=== PATIENT | male | born 1985 | race American Indian/Alaskan Native ===

== ENCOUNTER 2019-08-23 17:35 | Emergency (ER) | payer OTHER ==
--- NOTE | 2019-08-23 18:18 | Emergency Department Report ---
Blank Doc - Documentation Documentation: 33-year-old male that presents with left sided chest pain with some SOB. This initial assessment/diagnostic orders/clinical plan/treatment(s) is/are subject to change based on patient's health status, clinical progression and re- assessment by fellow clinical providers in the ED. Further treatment and workup at subsequent clinical providers discretion. Patient/guardians urged not to elope from the ED as their condition may be serious if not clinically assessed and managed. Initial orders include: 1- Patient sent to ACC for further evaluation and treatment 2- CXR 3- EKG 4- labs
[2019-08-23 18:40] LABS: Basophils % (Auto) 0.3 % (0.0-1.8); Eosinophils # (Auto) 0.3 K/mm3 (0.0-0.4); Eosinophils % (Auto) 5.2 % (0.0-4.3); Hematocrit 42.4 % (35.5-45.6); Hemoglobin 14.5 gm/dl (11.8-15.2); Lymphocytes # (Auto) 2.8 K/mm3 (1.2-5.4); Lymphocytes % (Auto) 43.8 % (13.4-35.0); Mean Corpuscular HGB Conc 34 % (32-34); Mean Corpuscular Volume 88 fl (84-94); Monocytes # (Auto) 0.4 K/mm3 (0.0-0.8); Monocytes % (Auto) 6.4 % (0.0-7.3); Platelet Count 293 K/mm3 (140-440); Red Blood Count 4.84 M/mm3 (3.65-5.03); Red Cell Distribution Width 13.5 % (13.2-15.2)
[2019-08-23 19:04] LABS: BUN/Creatinine Ratio 11; Blood Urea Nitrogen 10 mg/dL (9-20); Calcium 9.6 mg/dL (8.4-10.2); Hemolysis Index 10
--- NOTE | 2019-08-23 19:29 | XRay Report ---
CHEST 2 VIEWS INDICATION / CLINICAL INFORMATION: cp. COMPARISON: None available. FINDINGS: SUPPORT DEVICES: None. HEART / MEDIASTINUM: No significant abnormality. LUNGS / PLEURA: No significant pulmonary or pleural abnormality. No pneumothorax. ADDITIONAL FINDINGS: No significant additional findings. IMPRESSION: 1. No acute findings. Signer Name: Dominic Cortez MD Signed: 08/23/2019 7:25 PM Workstation Name: [id number]
[2019-08-23 22:05] VITALS: BP 126/77
[2019-08-23] MEDS ORDERED: KETOROLAC 60 MG/2 ML INJ IM ONE (22:42)
--- NOTE | 2019-08-23 22:49 | Emergency Department Report ---
ED Chest Pain HPI - General Chief Complaint: Chest Pain Stated Complaint: CHEST PAIN Time Seen by Provider: 08/23/19 18:16 Source: patient Mode of arrival: Ambulatory Limitations: No Limitations - History of Present Illness Initial Comments: 33-year-old male with a past medical history tobacco use presents with the chest has 4 days. Pain is sharp in any one specific area his left chest and is reproducible with palpation and movement and activation of chest wall muscles. Patient denies shortness of breath, nausea, vomiting, or diaphoresis. Denies recent travel, calf tenderness, leg edema, hormonal therapy, history of PE/DVT. Patient did see some blood with blowing his nose followed by coughing of mild bloody sputum with mild epistaxis episode. 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 - Related Data Previous Rx's Medication Instructions Recorded Last Taken Type Acetaminophen/Codeine [Tylenol #3] 1 tab PO Q6H PRN #15 tab 12/12/15 Unknown Rx Ibuprofen [Motrin 800 MG tab] 800 mg PO Q8HR PRN #20 tablet 12/12/15 Unknown Rx Naproxen [Naprosyn] 500 mg PO BID PRN #20 tablet 08/23/19 Unknown Rx Allergies Allergy/AdvReac Type Severity Reaction Status Date / Time shrimp Allergy Swelling Verified 05/30/15 18:34 Heart Score - HEART Score History: Slightly suspicious EKG: Normal Age: < 45 Risk factors: 1-2 risk factors Troponin: < normal limit HEART Score: 1 ED Review of Systems ROS: Stated complaint: CHEST PAIN Other details as noted in HPI Comment: All other systems reviewed and negative ED Past Medical Hx - Past Medical History Previous Medical History?: No - Surgical History Past Surgical History?: No - Social History Smoking Status: Never Smoker Substance Use Type: None - Medications Home Medications: Home Medications Medication Instructions Recorded Confirmed Last Taken Type Acetaminophen/Codeine [Tylenol #3] 1 tab PO Q6H PRN #15 tab 12/12/15 Unknown Rx Ibuprofen [Motrin 800 MG tab] 800 mg PO Q8HR PRN #20 tablet 12/12/15 Unknown Rx Naproxen [Naprosyn] 500 mg PO BID PRN #20 tablet 08/23/19 Unknown Rx ED Physical Exam - General Limitations: No Limitations - Other Other exam information: General: No limitations, patient is alert in no acute distress Head exam: Atraumatic, normocephalic Eyes exam: Normal appearance ENT: Moist mucous membrane Neck exam: Normal inspection, full range of motion Respiratory exam: Clear to auscultation bilateral, no wheezes, rales, crackles Cardiovascular: Normal rate and rhythm. Reproducible left chest wall tenderness one specific area of chest with palpation. Abdomen: Soft, nondistended, and nontender, with normal bowel sounds, no rebound, or guarding, Extremity: No deformity Back: Normal Inspection, no calf tenderness or leg edema Neurologic: Alert, oriented x3, speech clear, no gross motor or sensory deficit Psychiatric: Normal mood, affect Skin: No rash ED Course Vital Signs 08/23/19 08/23/19 18:13 22:04 Temperature 98.8 F 98.5 F Pulse Rate 88 78 Respiratory 20 19 Rate Blood Pressure 126/78 Blood Pressure 126/77 [Right] O2 Sat by Pulse 98 98 Oximetry ELOISE score - Eloise Score Age > 65: (0) No Aspirin use within the Past 7 Days: (0) No 3 or more CAD Risk Factors: (0) No 2 or more Angina events in past 24 hrs: (0) No Known CAD with more than 50% Stenosis: (0) No Elevated Cardiac Markers: (0) No ST Deviation Greater than 0.5mm: (0) No ELOISE Score: 0 ED Medical Decision Making - Lab Data Result diagrams: 08/23/19 18:23 08/23/19 18:23 Lab Results 08/23/19 08/23/19 Range/Units 18:23 18:23 WBC 6.3 (4.5-11.0) K/mm3 RBC 4.84 (3.65-5.03) M/mm3 Hgb 14.5 (11.8-15.2) gm/dl Hct 42.4 (35.5-45.6) % MCV 88 (84-94) fl MCH 30 (28-32) pg MCHC 34 (32-34) % RDW 13.5 (13.2-15.2) % Plt Count 293 (140-440) K/mm3 Lymph % (Auto) 43.8 H (13.4-35.0) % [place] % (Auto) 6.4 (0.0-7.3) % Eos % (Auto) 5.2 H (0.0-4.3) % Baso % (Auto) 0.3 (0.0-1.8) % Lymph # 2.8 (1.2-5.4) K/mm3 [place] # 0.4 (0.0-0.8) K/mm3 Eos # 0.3 (0.0-0.4) K/mm3 Baso # 0.0 (0.0-0.1) K/mm3 Seg Neutrophils % 44.3 (40.0-70.0) % Seg Neutrophils # 2.8 (1.8-7.7) K/mm3 Sodium 139 (137-145) mmol/L Potassium 4.4 (3.6-5.0) mmol/L Chloride 100.8 (98-107) mmol/L Carbon Dioxide 25 (22-30) mmol/L Anion Gap 18 mmol/L BUN 10 (9-20) mg/dL Creatinine 0.9 (0.8-1.5) mg/dL Estimated GFR > 60 ml/min BUN/Creatinine Ratio 11 % Glucose 97 (75-100) mg/dL Calcium 9.6 (8.4-10.2) mg/dL Troponin T < 0.010 (0.00-0.029) ng/mL - EKG Data -: EKG Interpreted by Co EKG shows normal: sinus rhythm, ST-T waves (no stemi) Rate: normal - Radiology Data Radiology results: report reviewed CHEST 2 VIEWS INDICATION / CLINICAL INFORMATION: cp. COMPARISON: None available. FINDINGS: SUPPORT DEVICES: None. HEART / MEDIASTINUM: No significant abnormality. LUNGS / PLEURA: No significant pulmonary or pleural abnormality. No pneumothorax. ADDITIONAL FINDINGS: No significant additional findings. IMPRESSION: 1. No acute findings. - Medical Decision Making pt with reproducible chest wall pain and performs heavy lifting at work. Pain is Reproducible palpation and activation of the chest wall muscle. EKG without signs of ischemia. Troponin negative. and Low heart score and low risk for PE/DVT. Plan to d/c pt home with pain meds toradol given in ed - Differential Diagnosis msk pain, mi, pe,atypical cp Critical Care Time: No Critical care attestation.: If time is entered above; I have spent that time in minutes in the direct care of this critically ill patient, excluding procedure time. ED Disposition Clinical Impression: Chest wall muscle strain Disposition: TO HOME OR SELFCARE Is pt being admited?: No Does the pt Need Aspirin: No Condition: Stable Instructions: Thoracic Pain (ED) Additional Instructions: Take the medication as prescribed. Follow-up with your doctor or with the doctor/clinic provided. Return if symptoms worsen as indicated by your discharge instructions. Prescriptions: Naproxen [Naprosyn] 500 mg PO BID PRN #20 tablet PRN Reason: Pain , Severe (7-10) Referrals: PRIMARY CAREMD [Primary Care Provider] - 3-5 Days QUINTEN LOPEZ MD [Staff Physician] - 3-5 Days Time of Disposition: 22:53
== END 2019-08-24 00:05 | disposition home or self-care (01) ==
LOC: ED 17:35
DX: S29.011A Strain of muscle and tendon of front wall of thorax, initial encounter (principal); Z79.899 Other long term (current) drug therapy; Z91.013 Allergy to seafood; X58.XXXA Exposure to other specified factors, initial encounter; Y93.89 Activity, other specified; Y92.89 Other specified places as the place of occurrence of the external cause; Y99.8 Other external cause status
CPT/HCPCS: 36415; 71046; 80048; 84484; 85025; 93005; 93010; 96372; 99284; J1885

== ENCOUNTER 2019-09-30 19:24 | Emergency (ER) | payer OTHER ==
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
[2019-09-30 22:09] VITALS: BP 134/86
--- NOTE | 2019-09-30 23:31 | XRay Report ---
Bilateral RIBS with PA chest, 4 views INDICATION: Bilateral chest pain FINDINGS: The ribs are intact with no fracture or bone lesion. Accompanying chest x-ray is unremarkab le. No abnormality seen. Signer Name: Valdez Rendon MD Signed: 09/30/2019 11:27 PM Workstation Name: [id number]
[2019-10-01] MEDS ORDERED: traMADol 50 MG TAB PO ONE (02:03)
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
== END 2019-10-01 02:15 | disposition home or self-care (01) ==
LOC: ED 19:24
DX: S20.211A Contusion of right front wall of thorax, initial encounter (principal); Z91.013 Allergy to seafood; Z79.899 Other long term (current) drug therapy; V49.49XA Driver injured in collision with other motor vehicles in traffic accident, initial encounter; Y93.89 Activity, other specified; Y92.410 Unspecified street and highway as the place of occurrence of the external cause; Y99.8 Other external cause status
CPT/HCPCS: 71111

== ENCOUNTER 2020-10-25 17:34 | Emergency (ER) | payer OTHER ==
[2020-10-25 19:23] VITALS: BP 133/97
--- NOTE | 2020-10-25 20:13 | Emergency Department Report ---
ED ENT HPI - General Chief complaint: Earache Stated complaint: POSSIBLE EAR INFECTION Time Seen by Provider: 10/25/20 20:02 Source: patient Mode of arrival: Ambulatory Limitations: No Limitations - History of Present Illness Initial comments: Patient is a 35-year-old male presents emergency room with complaints of right ear pain that began 2 days ago. He states that he feels like his ear is swollen. He denies any drainage, fever, nausea, vomiting, diarrhea, cough, shortness of breath, hearing changes. He denies any known sick contacts or recent travel. No past medical history. Allergy to shrimp. - Related Data Previous Rx's Medication Instructions Recorded Last Taken Type Acetaminophen/Codeine [Tylenol #3] 1 tab PO Q6H PRN #15 tab 12/12/15 Unknown Rx Ibuprofen [Motrin 800 MG tab] 800 mg PO Q8HR PRN #20 tablet 12/12/15 Unknown Rx Naproxen [Naprosyn] 500 mg PO BID PRN #20 tablet 08/23/19 Unknown Rx Naproxen 500 mg PO BID PRN #30 tablet 10/01/19 Unknown Rx Amoxicillin [Trimox] 500 mg PO BID 10 Days #40 capsule 10/25/20 Unknown Rx Ibuprofen [Motrin 600 MG tab] 600 mg PO Q8H PRN #14 tablet 10/25/20 Unknown Rx Neomycin/Polymyxin B/Hydrocort 4 drops AD QID 10 Days #1 solution 10/25/20 Unknown Rx [Cbofcbgb-Qkpzspzrb-Ij Ear Soln] Allergies Allergy/AdvReac Type Severity Reaction Status Date / Time shrimp Allergy Swelling Verified 05/30/15 18:34 ED Dental HPI - General Chief complaint: Earache Stated complaint: POSSIBLE EAR INFECTION Time Seen by Provider: 10/25/20 20:02 Source: patient Mode of arrival: Ambulatory Limitations: No Limitations - Related Data Previous Rx's Medication Instructions Recorded Last Taken Type Acetaminophen/Codeine [Tylenol #3] 1 tab PO Q6H PRN #15 tab 12/12/15 Unknown Rx Ibuprofen [Motrin 800 MG tab] 800 mg PO Q8HR PRN #20 tablet 12/12/15 Unknown Rx Naproxen [Naprosyn] 500 mg PO BID PRN #20 tablet 08/23/19 Unknown Rx Naproxen 500 mg PO BID PRN #30 tablet 10/01/19 Unknown Rx Amoxicillin [Trimox] 500 mg PO BID 10 Days #40 capsule 10/25/20 Unknown Rx Ibuprofen [Motrin 600 MG tab] 600 mg PO Q8H PRN #14 tablet 10/25/20 Unknown Rx Neomycin/Polymyxin B/Hydrocort 4 drops AD QID 10 Days #1 solution 10/25/20 Unknown Rx [Qhulokdc-Njfmzewfa-Xz Ear Soln] Allergies Allergy/AdvReac Type Severity Reaction Status Date / Time shrimp Allergy Swelling Verified 05/30/15 18:34 ED Review of Systems ROS: Stated complaint: POSSIBLE EAR INFECTION Other details as noted in HPI Comment: All other systems reviewed and negative ED Past Medical Hx - Past Medical History Previous Medical History?: No - Surgical History Past Surgical History?: No - Social History Smoking Status: Never Smoker Substance Use Type: None - Medications Home Medications: Home Medications Medication Instructions Recorded Confirmed Last Taken Type Acetaminophen/Codeine [Tylenol #3] 1 tab PO Q6H PRN #15 tab 12/12/15 Unknown Rx Ibuprofen [Motrin 800 MG tab] 800 mg PO Q8HR PRN #20 tablet 12/12/15 Unknown Rx Naproxen [Naprosyn] 500 mg PO BID PRN #20 tablet 08/23/19 Unknown Rx Naproxen 500 mg PO BID PRN #30 tablet 10/01/19 Unknown Rx Amoxicillin [Trimox] 500 mg PO BID 10 Days #40 capsule 10/25/20 Unknown Rx Ibuprofen [Motrin 600 MG tab] 600 mg PO Q8H PRN #14 tablet 10/25/20 Unknown Rx Neomycin/Polymyxin B/Hydrocort 4 drops AD QID 10 Days #1 solution 10/25/20 Unknown Rx [Mismovmg-Ttwgwajqh-Gr Ear Soln] ED Physical Exam - General Limitations: No Limitations General appearance: alert, in no apparent distress - Head Head exam: Present: atraumatic, normocephalic - Eye Eye exam: Present: normal appearance - ENT ENT exam: Present: mucous membranes moist, other (right ear canal is edematous and erythematous, no purulent drainage in the canal, no blood in the canal, no foreign body, no cerumen impaction, right TM is erythematous with purulence behind the TM, left TM and canal are normal, no mastoid ttp or edema b ilaterally) - Respiratory Respiratory exam: Present: normal lung sounds bilaterally. Absent: respiratory distress, wheezes, rales, rhonchi, stridor, chest wall tenderness, accessory muscle use, decreased breath sounds, prolonged expiratory - Cardiovascular Cardiovascular Exam: Present: regular rate, normal rhythm, normal heart sounds. Absent: systolic murmur, diastolic murmur, rubs, gallop - Neurological Exam Neurological exam: Present: alert, oriented X3 - Psychiatric Psychiatric exam: Present: normal affect, normal mood - Skin Skin exam: Present: warm, dry, intact ED Course Vital Signs 10/25/20 19:20 Temperature 98.4 F Pulse Rate 70 Respiratory 18 Rate Blood Pressure 133/97 [Right] O2 Sat by Pulse 100 Oximetry ED Medical Decision Making - Medical Decision Making Patient is a 35-year-old male presents emergency room with complaints of right ear pain that began 2 days ago. He states that he feels like his ear is swollen. He denies any drainage, fever, nausea, vomiting, diarrhea, cough, shortness of breath, hearing changes. He denies any known sick contacts or re cent travel. No past medical history. Allergy to shrimp. Vitals are stable. On exam: right ear canal is edematous and erythematous, no purulent drainage in the canal, no blood in the canal, no foreign body, no cerumen impaction, right TM is erythematous with purulence behind the TM, left TM and canal are normal, no mastoid ttp or edema bilaterally. Examination appears consistent with otitis media and otitis externa. Given prescription for amoxicillin, antibiotic eardrops, ibuprofen. Advised patient Please use medication as prescribed. Please follow-up with a primary care doctor for ear recheck. Return to emergency room for new or worsening symptoms. Critical care attestation.: If time is entered above; I have spent that time in minutes in the direct care of this critically ill patient, excluding procedure time. ED Disposition Clinical Impression: Otitis media Qualifiers: Otitis media type: suppurative Chronicity: acute Laterality: right Recurrence: non-recurrent Spontaneous tympanic membrane rupture: without spontaneous rupture Qualified Code(s): H66.001 - Acute suppurative otitis media without spontaneous rupture of ear drum, right ear Otitis externa Qualifiers: Otitis externa type: unspecified type Chronicity: acute Laterality: right Q ualified Code(s): H60.501 - Unspecified acute noninfective otitis externa, right ear Disposition: DC-01 TO HOME OR SELFCARE Is pt being admited?: No Does the pt Need Aspirin: No Condition: Stable Instructions: Ear Drops, Adult, Otitis Media, Adult, Mivp-bk-Gxzf, Otitis Externa Additional Instructions: Please use medication as prescribed. Please follow-up with a primary care doctor for ear recheck. Return to emergency room for new or worsening symptoms. Prescriptions: Amoxicillin [Trimox] 500 mg PO BID 10 Days #40 capsule Ibuprofen [Motrin 600 MG tab] 600 mg PO Q8H PRN #14 tablet PRN Reason: Pain Neomycin/Polymyxin B/Hydrocort [Nhxlooqt-Bmfkejyfp-Kd Ear Soln] 4 drops AD QID 10 Days #1 solution Referrals: QUINTEN LOPEZ MD [Staff Physician] - 3-5 Days [facility] [Provider Group] - 3-5 Days Forms: Work/School Release Form(ED) Time of Disposition: 20:11 Print Language: YORUBA
== END 2020-10-25 20:48 | disposition home or self-care (01) ==
LOC: ED 17:34
DX: H66.91 Otitis media, unspecified, right ear (principal); H60.91 Unspecified otitis externa, right ear; Z79.1 Long term (current) use of non-steroidal anti-inflammatories (NSAID); Z79.899 Other long term (current) drug therapy; Z91.013 Allergy to seafood
CPT/HCPCS: 99281